=== PATIENT | female | born 1995 | race Caucasian/White ===

== ENCOUNTER 2022-11-08 23:45 | Emergency (ER) | payer MEDICAID ==
[~2022-11-08] VITALS: Ht 160 cm; Wt 76.7 kg
[2022-11-08 23:57] VITALS: BP 120/43; O2SAT 100
[2022-11-09] MEDS ORDERED: OFLO5DRO4 RIGHT EAR (00:46)
[2022-11-09 00:53] VITALS: PULSE 76; RESP 18; TEMP 98.8
== END 2022-11-09 00:57 | disposition home or self-care (01) ==
LOC: ER 23:45
DX: H60.91 Unspecified otitis externa, right ear (principal)
CPT/HCPCS: 81025; 99282; 99283